=== PATIENT | female | born 1955 | race Caucasian/White ===

== ENCOUNTER 2017-11-17 13:02 | Emergency (ER) | payer BC ==
--- NOTE | 2017-11-17 13:08 | PDOC ---
History of Present Illness - General Chief Complaint: Revisit,Rabies Injection Stated Complaint: RABBIES INJECTION Time Seen by Provider: 11/17/17 13:08 History Source: Patient Exam Limitations: No Limitations - History of Present Illness Initial Comments: 62 yo F presents 3 days s/p raccoon bite. She was treated in this ED with rabies vaccine and with abx, but now today she notes that there is slight redness and swelling around the 2 bite mendoza. No fever, no red streaks on the arm. Past History - Past Medical History Allergies/Adverse Reactions: Allergies Allergy/AdvReac Type Severity Reaction Status Date / Time amoxicillin Allergy Verified 11/17/17 13:05 Home Medications: Ambulatory Orders Citalopram Hydrobromide [Celexa -] 20 mg PO DAILY 05/05/15 Cefuroxime Axetil [Ceftin -] 500 mg PO Q12H #10 tablet 11/15/17 Clindamycin [Cleocin -] 300 mg PO Q6H #28 capsule 11/17/17 Doxycycline Hyclate [Vibramycin -] 100 mg PO BID #14 cap 11/17/17 COPD: No Psychiatric Problems: Yes (ANXIETY) - Immunization History Immunization Up to Date: No - Suicide/Smoking/Psychosocial Hx Smoking History: Current some day smoker Number of Cigarettes Smoked Daily: 3 'Breaking Loose' booklet given: 11/14/17 Hx Alcohol Use: No Drug/Substance Use Hx: No Substance Use Type: None Review of Systems - Review of Systems Able to Perform ROS?: Yes Comments:: GENERAL/CONSTITUTIONAL: No fever or chills. No weakness. HEAD, EYES, EARS, NOSE AND THROAT: No change in vision. No ear pain or discharge. No sore throat. MUSCULOSKELETAL: No joint or muscle swelling or pain. No neck or back pain. SKIN: +Skin abrasions to L wrist. NEUROLOGIC: No headache, vertigo, loss of consciousness, or change in strength/ sensation. ENDOCRINE: No increased thirst. No abnormal weight change. HEMATOLOGIC/LYMPHATIC: No anemia, easy bleeding, or history of blood clots. ALLERGIC/IMMUNOLOGIC: No hives or skin allergy. *Physical Exam - Physical Exam Comments: GENERAL: Awake, alert, and fully oriented, in no acute distress HEAD: No signs of trauma EYES: PERRLA, EOMI, sclera anicteric, conjunctiva clear ENT: Auricles normal inspection, hearing grossly normal, nares patent, oropharynx clear without exudates. Moist mucosa NECK: Normal ROM, supple, no lymphadenopathy, JVD, or masses LUNGS: Breath sounds equal, clear to auscultation bilaterally. No wheezes, and no crackles HEART: Regular rate and rhythm, normal S1 and S2, no murmurs, rubs or gallops ABDOMEN: Soft, nontender, normoactive bowel sounds. No guarding, no rebound. No masses EXTREMITIES: Normal range of motion, no edema. No clubbing or cyanosis. No cords or tenderness NEUROLOGICAL: Cranial nerves II through XII grossly intact. Normal speech, normal gait SKIN: Warm, Dry, normal turgor. L wrist with 2 small abrasions with surrounding erythema. No induration, no fluctuance. Medical Decision Making - Medical Decision Making 11/17/17 13:25 D/w Dr. Yin via phone. Recommended increasing antibiotic coverage. Will give doxy and clinda. 11/17/17 13:39 I outlined the wounds with skin marker. Instructed patient to return to ED immediately if redness is expanding beyond the lines, as she will require IV abx. *DC/Admit/Observation/Transfer Diagnosis at time of Disposition: Raccoon bite Qualifiers: Encounter type: initial encounter Qualified Code(s): W55.51XA - Bitten by kortney, initial encounter - Discharge Dispostion Disposition: HOME Condition at time of disposition: Stable Decision to Admit order: No - Prescriptions Prescriptions: Clindamycin [Cleocin -] 300 mg PO Q6H #28 capsule Doxycycline Hyclate [Vibramycin -] 100 mg PO BID #14 cap - Referrals - Patient Instructions Printed Discharge Instructions: DI for Animal Bites, DI for Rabies Vaccine Additional Instructions: DISCONTINUE THE CEFTIN. START THE DOXYCYCLINE AND CLINDAMYCIN TODAY. IF THE REDNESS WORSENS, RETURN TO THE ER, YOU MAY REQUIRE ADMISSION TO THE HOSPITAL FOR ANTIBIOTICS THROUGH AN IV. - Post Discharge Activity
[2017-11-17] MEDS ORDERED: RABIES VACCINE (PCEC)/PF 2.5 UNIT/VIAL IM ONE (13:13)
[2017-11-17 13:19] VITALS: BP 102/64; PULSE 72; TEMP 98.7; BMI 28.3
== END 2017-11-17 13:55 | disposition home or self-care (01) ==
LOC: FER 13:02
PROC: 3E0234Z Introduction of Serum, Toxoid and Vaccine into Muscle, Percutaneous Approach (ICD-10-PCS; principal; 2017-11-17)
DX: S61.552D Open bite of left wrist, subsequent encounter (principal); W55.51XD Bitten by raccoon, subsequent encounter; Y92.9 Unspecified place or not applicable; F17.210 Nicotine dependence, cigarettes, uncomplicated; F41.9 Anxiety disorder, unspecified; Z23 Encounter for immunization; Z20.3 Contact with and (suspected) exposure to rabies
CPT/HCPCS: 90675; 99281-25

== ENCOUNTER 2020-06-26 12:03 | Emergency (ER) | payer BC | END 2020-06-26 12:46 | disposition home or self-care (01) | LOC: JVIRT 12:03 | DX: Z11.52 Encounter for screening for COVID-19 (principal) | CPT/HCPCS: C9803; G2012-GT; U0003 ==

== ENCOUNTER 2021-06-22 17:07 | Emergency (ER) | payer BC ==
[2021-06-22] MEDS ORDERED: DIPHTH,PERTUSS(ACELL),TET 0.5 ML DISP.SYRIN IM ONE ×2 (17:34→17:57)
[2021-06-22 17:39] VITALS: BP 121/67; PULSE 66; TEMP 98.2; BMI 28.9
[2021-06-22] MEDS ORDERED: ceFAZolin SODIUM 1 GM VIAL IV ONE (17:59)
[2021-06-22] MEDS ORDERED: ceFAZolin SODIUM 1 GM VIAL ONE (18:15)
[2021-06-22] MEDS ORDERED: GENTAMICIN IVPB SCH (18:30)
[2021-06-22] MEDS ORDERED: DEXTROSE 5% IVPB SCH (18:30)
[2021-06-22] MEDS ORDERED: WATER IVPB SCH (18:30)
[2021-06-22] MEDS ORDERED: LIDOCAINE HCL 2% (50ML VIAL) SQ ONE (19:09)
[2021-06-22] MEDS ORDERED: LIDOCAINE HCL 2% (20ML MULTI-DOSE VIAL) ONE (19:09)
[2021-06-22] MEDS ORDERED: SODIUM CHLORIDE 500 ML IV STA (20:53)
== END 2021-06-22 23:34 | disposition home or self-care (01) ==
LOC: FER 17:07
PROC: 3E03329 Introduction of Other Anti-infective into Peripheral Vein, Percutaneous Approach (ICD-10-PCS; principal; 2021-06-22)
PROC: 3E03329 Introduction of Other Anti-infective into Peripheral Vein, Percutaneous Approach (ICD-10-PCS; 2021-06-22)
PROC: 3E0234Z Introduction of Serum, Toxoid and Vaccine into Muscle, Percutaneous Approach (ICD-10-PCS; 2021-06-22)
PROC: 3E0337Z Introduction of Electrolytic and Water Balance Substance into Peripheral Vein, Percutaneous Approach (ICD-10-PCS; 2021-06-22)
DX: S81.011A Laceration without foreign body, right knee, initial encounter (principal); W00.0XXA Fall on same level due to ice and snow, initial encounter
CPT/HCPCS: 73560-TC-RT-FY; 90715; 99284-25